=== PATIENT | male | born 1950 | race Caucasian/White ===

== ENCOUNTER → 2017-01-10 | Outpatient (CLI) | payer MEDICARE ==
[~2017-01-10] MED LIST: ACETAMINOPHEN-H1 TA2 PO; ALDACTONE 25MG25 MG PO; ALLOPURINOL100 MG PO; ALLOPURINOL300 M1 PO; AMIODARONE 200200 MG PO; ASPIRIN 325MG325 MG PO; ASPIRIN REGIMEN81 MG PO; BACTRIM DS 8001 TA1 PO; BYSTOLIC5 MG PO; CARVEDILOL6.25 MG PO; CEFDINIR300 M1 PO; CEFUROXIME AXE500 MG PO; COLCRYS0.6 M1 PO; COLCRYS0.6 MG PO; COMBIVENT RESPI1 SPR IH; COMBIVENT1 AR1 IH; COREG 3.125M3.125 MG PO; COREG3.125 MG PO; DIGOXIN0.125 MG PO; DIGOXIN0.25 MG PO; EFFIENT10 M2 PO; ELIQUIS5 MG PO; INDOMETHACIN50 MG PO; KETOROLAC 10MG10 MG PO; LIPITOR40 M1 PO; LIPITOR80 MG PO; LOSARTAN POTASS25 MG PO; LOSARTAN POTASS50 MG PO; METFORMIN500 MG PO; NITROGLYCERIN0.4 MG SL; NORCO 325 MG-51 TAB PO; OXAZEPAM 10MG C10 M1 PO; OXYGEN IH; PREDNISONE 10MG10 MG PO
--- NOTE | 2017-01-10 15:25 | RADIOLOGY REPORT PS360 ---
ARTERIAL/[id number] JAVAD LEG PAIN, previous smoker, diabetes, peripheral vascular disease, bilateral rest pain and bilateral claudication ORDERING PHYSICIAN: Kevin North MD PATIENT AGE: 66 years TECHNIQUE: Segmental pressures obtained of both right and left leg. These are compared to brachial blood pressure to yield index at each level sampled including summary CODY. The data sheets from the procedure are available in PACS FINDINGS Rest study only performed today No prior studies available for comparison. Blood pressures reported are in millimeters mercury. RIGHT LEG CODY = 1.1. Brachial BP: 163 Thigh BP: 162 Calf BP: 171 Ankle PT: 184 Ankle DP : 174 Digit =157 LEFT LEG CODY = 1.1 Brachial BPD: 159 Thigh BP: 169 Calf BP: 153 Ankle PT:174 Ankle DP: 169 Digit = 176 Pulses and waveforms: Normal IMPRESSION: The ABIs as reported above are within normal limits. Waveforms and pulses are also unremarkable.
== END ==
LOC: RT 09:30
DX: I73.9 Peripheral vascular disease, unspecified (principal)

== ENCOUNTER → 2017-05-15 | Outpatient (CLI) | payer MEDICARE ==
[2017-05-15 09:43] LABS: BILIRUBIN, INDIRECT 0.42 mg/dL (0-0.9)
== END ==
LOC: LAB 09:01
PROVIDERS: Internal Medicine
DX: I25.10 Atherosclerotic heart disease of native coronary artery without angina pectoris (principal); I42.9 Cardiomyopathy, unspecified; G47.33 Obstructive sleep apnea (adult) (pediatric); E11.9 Type 2 diabetes mellitus without complications; I10 Essential (primary) hypertension; E78.5 Hyperlipidemia, unspecified